=== PATIENT | female | born 1960 | race Caucasian/White ===

== ENCOUNTER 2020-06-16 10:56 | Emergency (ER) | payer OTHER ==
--- OUTSIDE RECORDS SUMMARY | 2020-06-16 11:02 | XMS REPORT | Continuity of Care Document ---
:1960 Author Organization [facility] t Address [address] [place] [address] Care Team Providers Name Role Phone SHARAD SASKIA Primary Care Physician Unavailable Vic Rascon MD Attending Clinician JERROD ZAPIEN Attending Clinician Unavailable Mateus Fermin MD Attending Clinician Alex Sanches APRN Attending Clinician Refugio Oliveira NP Attending Clinician Dorene CALDERA Attending Clinician Unavailable Fercho Kamara MD Attending Clinician Nick Riggins MD Attending Clinician Wade DRAKE Attending Clinician Unavailable Ismael CALDERA Attending Clinician Unavailable Ozzie Mosher MD Attending Clinician Brian TYLER Attending Clinician TARAH Admitting Clinician Unavailable Payers Payer Name Policy Type Policy Effective Date Expiration Date Sour ce Number [facility] [id number] 2019 [place] CHO[place] 00:00:00 [facility] EXCHANGECOM [facility] EXCHANGE MARKETPLACExxxxxx [id number] 2019-Pr esentExchange Problems Condition Condition Condition Status Onset Resolution Last Treating Co mments Source Name Details Category Date Date Treatment Clinician Date Bladder Bladder Disease Active 2019-04 [place] cancer cancer 2 Methodi 00:00: st 00 Allergies, Adverse Reactions, Alerts Allergy Allergy Status Severity Reaction(s) Onset Inactive Treating Comm ents Source Name Type Date Date Clinician Scopolam Propensi Active Other (See headaches [place] ine ty to Comments) 05-21 Methodi adverse 00:00: st reaction 00 s to drug Food Propensi Active Other (See 2019-04 TEA,AM.CH H anny Supplemt ty to Comments) 06-20 EESE,APPL Me thodi , adverse 00:00: E,BARLEY, st Lactose- reaction 00 BENZOIC Reduced s to ACID,EASLEY drug WHEAT,CAF FAINE,BRITTNI RRY,CORN, COW'S MILK,EGG, NABILA, GOAT'S MILK, GR.PEPPER ,LENTIL,P INTO PASTRANA,PIST ACHIO, STRAWBERR Y,TAPIOCA ,VANILLA, POTATO,CA PSAICIN,H ONEY,ANA YDEW,WHEA TMILK PROTEIN Adhesive Propensi Active Other (See 2019-04 blisterin [place] Tape-Jud ty to Comments) 2-22 g Metho di icones adverse 00:00: st reaction 00 s to drug Bacitrac Propensi Active Other (See 2019-04 blisterin [place] in ty to Comments) 2-22 g Methodi adverse 00:00: st reaction 00 s to drug Diphenhy Propensi Active Other (See 2019-04 Severe [place] dramine ty to Comments) 2-22 headache Meth thanh Hcl adverse 00:00: st reaction 00 s to drug Benzalko Propensi Active Other (See 2019-04 Burning, [place] nium ty to Comments) 2-22 itching Method i Chloride adverse 00:00: st reaction 00 s to drug Clindamy Propensi Active Other (See 2019-04 Abdominal [place] vivi ty to Comments) 2-22 pain Methodi adverse 00:00: st reaction 00 s to drug Erythrom Propensi Active Other (See 2019-04 Abdominal [place] ycin ty to Comments) 2-22 pain Methodi adverse 00:00: st reaction 00 s to drug Gentamic Propensi Active Other (See 2019-04 Bladder [place] in ty to Comments) 2-22 pain and Metho di adverse 00:00: inflammat st reaction 00 ion s to drug Ibuprofe Propensi Active Other (See 2019-04 Abdominal [place] n ty to Comments) 2-22 pain Methodi adverse 00:00: st reaction 00 s to drug Lanolin Propensi Active Hives, Rash 2019-04 [place] ty to - Methodi adverse 00:00: st reaction 00 s to drug Furosemi Propensi Active Hives 2019-04 Pain [place] de ty to 06-14 Methodi adverse 00:00: st reaction 00 s to drug Latex Propensi Active Hives, 2019-04 [place] ty to Itching 2- Methodi adverse 00:00: st reaction 00 s to drug Mercury Propensi Active Other (See 2019-04 Mercury [place] us[place] (Element ty to Comments) 2- preservat Me thodi al) adverse 00:00: betsey: st reaction 00 infammati s to on (my drug ear canal swelled shut) Mitomyci Propensi Active Other (See 2019-04 Pain, [place] ty to Comments) 2-22 tissue Methodi adverse 00:00: damage st reaction 00 s to drug Neomycin Propensi Active Other (See 2019-04 blisterin [place] ty to Comments) 2-22 g Methodi adverse 00:00: st reaction 00 s to drug Neomycin Propensi Active Other (See 2019-04 blisterin [place] -Bacitra ty to Comments) 2-22 g Metho di vivi-Poly adverse 00:00: st myxin reaction 00 s to drug Other Propensi Active Other (See 2019-04 SNRI [place] ty to Comments) 2-22 causes Methodi adverse 00:00: suidical st reaction 00 ideation, s lethargyS SRI causes nausea, confusion , night terrors Oxycodon Propensi Active Other (See 2019-04 Abdominal [place] e ty to Comments) 2-22 pain Methodi Hcl-Oxyc adverse 00:00: st odone-As reaction 00 a s to drug Polymyci Propensi Active Other (See 2019-04 blisterin [place] n ty to Comments) 2-22 g Methodi adverse 00:00: st reaction 00 s to drug Phenazop Propensi Active Other (See 2019-04 Bladder [place] yridine ty to Comments) 2-22 pain and Meth thanh adverse 00:00: inflammat st reaction 00 ion s to drug Tetracyc Propensi Active Other (See 2019-04 Abdominal [place] lines ty to Comments) 2-22 pain Methodi adverse 00:00: st reaction 00 s to drug Thimeros Propensi Active Other (See 2019-04 Inflammat [place] al ty to Comments) 2 ion (my Method i adverse 00:00: ear canal st reaction 00 swelled s to shut) drug Tramadol Propensi Active Other (See 2019-04 Hallucina [place] ty to Comments) 2- tion, Methodi adverse 00:00: abdominal st reaction 00 pain s to drug Hydrocod Propensi Active Other (See 2019-04 headache [place] one-Acet ty to Comments) 2 Metho di aminophe adverse 00:00: st n reaction 00 s to drug White Propensi Active Hives, 2019-04 Skin [place] Petrolat ty to Itching 2 cracking Metho di um adverse 00:00: st reaction 00 s to drug Social History Social Habit Start Date Stop Date Quantity Comments Source History of tobacco Current smoker [place] Caodaism use Sex Assigned At [facility] ethodist Exposure to Not sure [place] Metho dist SARS-CoV-2 (event) Cigarettes smoked 2020-05-31 2020-05-31 [place] Caodaism current (pack per 00:00:00 00:00:00 day) - Reported Cigarette 2020-05-31 2020-05-31 [place] Method ist pack-years 00:00:00 00:00:00 Tobacco use and 2020-05-31 2020-05-31 Never used [facility] ethodist exposure 00:00:00 00:00:00 Alcohol intake 2020-05-31 2020-05-31 Current drinker [place] [facility]ism 00:00:00 00:00:00 of alcohol (finding) Alcohol Comment 2020-04-19 2020-04-19 socially [facility] ethodist 00:00:00 00:00:00 History SDWY 2020-04-13 2020-04-13 2 [place] Meth odist Alcohol Frequency 00:00:00 00:00:00 History SDOH 2020-04-13 2020-04-13 1 [place] Meth odist Alcohol Std Drinks 00:00:00 00:00:00 History SDWY 2020-04-13 2020-04-13 1 [place] Meth odist Alcohol Binge 00:00:00 00:00:00 Smoking Status Start Date Stop Date Source Former smoker 2020-05-31 00:00:00 2020-05-31 00:00:00 Guicho Torresist Medications Ordered Filled Start Stop Current Ordering Indication Dosage Frequency Signature Comments Components Source Medication Medication Date Date Medication? Clinician (SIG) Name Name ondansetron Yes 4mg Q8H Take 1 [place] (Zofran) 4 2-19 tablet (4 Meth thanh MG tablet 00:00: mg total) st 00 by mouth every 8 (eight) hours as needed for nausea or vomiting. sulfamethox 2020- Yes 1{tbl} Q.5D Take 1 [place] azole-trime 2-19 02-24 tablet by Ok thodi thoprim 00:00: 23:[address] (Bactrim 00 :00 (two) DS) 800-160 times a mg per day for 5 tablet days. therapeutic Yes 1{tbl} QD Take 1 [place] multivitami 2-10 tablet by Met sushant javed 15:40: mouth st (THERAGRAN) 48 daily. tablet valACYclovi Yes 1000mg Q.5D Take 1,000 [place] r (VALTREX) 2-10 mg by Methodi 500 MG 15:40: mouth 2 st tablet 48 (two) times a day as needed. enoxaparin Yes 30mg Q24H Inject 0.3 [place] (Lovenox) 2-10 mL (30 mg Metho di 30 mg/0.3 00:00: total) st mL syringe 00 under the skin daily. docusate 2020- Yes 100mg Q.5D Take 1 [place] sodium 2-10 03-12 capsule Methodi (Colace) 00:00: 23:59 ([address] 100 MG 00 :00 total) by capsule mouth 2 (two) times a day for 30 days. amoxicillin Yes 1{capsu Q.[id number] Take 1 [place] (AMOXIL) 1-27 le} [id number] capsule by Methodi 500 MG 00:00: 3D mouth 3 st capsule 00 (three) times a day. docusate 2019-04- No 100mg Q.5D Take 1 [place] sodium 2-29 01-04 capsule Methodi (Colace) 00:00: 00:00 ([address] 100 MG 00 :00 total) by capsule mouth 2 (two) times a day for 30 days. Vital Signs Vital Name Observation Time Observation Value Comments Source Systolic blood 2020-06-02 11:27:21 130 mm[Hg] [place]helle[place] n Caodaism pressure Diastolic blood 2020-06-02 11:27:21 67 mm[Hg] [place] on Caodaism pressure Heart rate 2020-06-02 11:27:21 82 /min Guicho Barrios Body temperature 2020-06-02 11:27:21 35.61 Ilana [place] [facility] Respiratory rate 2020-06-02 11:27:21 16 /min Rochelle Barrios Oxygen saturation in 2020-06-02 11:27:21 93 /min Guicho Barrios Arterial blood by Pulse oximetry Body weight 2020-05-28 06:17:00 100.387 kg Guicho Barrios BMI 2020-05-28 06:17:00 35.19 kg/m2 Guicho Barrios Body height 2020-05-25 11:58:00 168.9 cm Guicho Barrios Procedures Procedure Date / Time Performing Clinician Source Performed ARTERIAL LINE 2020-06-13 10:07:44 Gabriela Hansen ethodist XR ABDOMEN 1 VW 2020-06-11 09:06:00 SatVic lopez Ok thodist COMPREHENSIVE METABOLIC 2020-06-11 08:15:00 Vic Rascon Caodaism PANEL HC COMPLETE BLD COUNT 2020-06-11 08:15:00 Vic Rascon W/AUTO DIFF ESTIMATED GFR 2020-06-11 08:15:00 Vic Rascon Ok thodist BASIC METABOLIC PANEL 2020-06-02 04:05:00 Kyra Hummel HC COMPLETE BLD COUNT 2020-06-02 04:05:00 Kyra Hummel W/AUTO DIFF PHOSPHORUS LEVEL 2020-06-02 04:05:00 Kyra Hummel hodist MAGNESIUM LEVEL 2020-06-02 04:05:00 Kyra Hummel Meth odist ESTIMATED GFR 2020-06-02 04:05:00 Vic Rascon Ok thodist CONSULT TO OSTOMY CARE 2020-06-01 07:54:11 Satkunasivam, Vic lunsford Caodaism NURSE HC COMPLETE BLD COUNT 2020-06-01 06:30:00 Brinda Amin Caodaism W/AUTO DIFF Michelle BASIC METABOLIC PANEL 2020-06-01 06:30:00 Brinda Amin Michelle MAGNESIUM LEVEL 2020-06-01 06:30:00 Brinda Amin Caodaism Michelle PHOSPHORUS LEVEL 2020-06-01 06:30:00 Brinda Amin on Caodaism Michelle ESTIMATED GFR 2020-06-01 06:30:00 Tarah, Vic Lindo Ok thodist XR ABDOMEN 2 VW AP W 2020-05-31 12:39:36 Kyra Hummel Ca[facility]ism UPRIGHT AND/OR DECUBITUS XR PICC CHEST PORTABLE 2020-05-31 11:03:04 Vic Rascon Caodaism PICC INSERTION REQUEST 2020-05-31 10:19:59 Trevon Rutledge on Caodaism HC COMPLETE BLD COUNT 2020-05-31 04:45:00 CelBreezy richards Caodaism W/AUTO DIFF COMPREHENSIVE METABOLIC 2020-05-31 04:00:00 CelBreezy richards Caodaism PANEL MAGNESIUM LEVEL 2020-05-31 04:00:00 Breezy Perez Meth odist PHOSPHORUS LEVEL 2020-05-31 04:00:00 Breezy Perez Met janett ESTIMATED GFR 2020-05-31 04:00:00 Vic Rascon Ok thodist HC COMPLETE BLD COUNT 2020-05-30 04:05:00 CelBreezy richards Caodaism W/AUTO DIFF COMPREHENSIVE METABOLIC 2020-05-30 04:00:00 Breezy Perez Caodaism PANEL MAGNESIUM LEVEL 2020-05-30 04:00:00 Breezy Perez Meth odist PHOSPHORUS LEVEL 2020-05-30 04:00:00 Breezy Perez ESTIMATED GFR 2020-05-30 04:00:00 Satkeros, Vic Lindo Ok thodist XR CHEST 1 VW PORTABLE 2020-05-29 09:17:32 Ayleen Martin on Caodaism COMPREHENSIVE METABOLIC 2020-05-29 04:00:00 CelBreezy richards Caodaism PANEL MAGNESIUM LEVEL 2020-05-29 04:00:00 Breezy Perez Meth odist PHOSPHORUS LEVEL 2020-05-29 04:00:00 Breezy Perez Met hodist ESTIMATED GFR 2020-05-29 04:00:00 Deshaunkeros, Vic Lindo Ok thodist HC COMPLETE BLD COUNT 2020-05-29 03:20:00 CelBreezy richards Caodaism W/AUTO DIFF POC GLUCOSE 2020-05-28 21:07:00 Vic Rascon Ok thodist XR ABDOMEN 1 VW PORTABLE 2020-05-28 18:37:41 CelBreezy richards Caodaism XR CHEST 1 VW PORTABLE 2020-05-28 18:37:20 CelBreezy richards on Caodaism COMPREHENSIVE METABOLIC 2020-05-28 16:35:00 CelBreezy richards Caodaism PANEL HC COMPLETE BLD COUNT 2020-05-28 16:35:00 Breezy Perez W/AUTO DIFF PHOSPHORUS LEVEL 2020-05-28 16:35:00 Breezy Perez Met hodist MAGNESIUM LEVEL 2020-05-28 16:35:00 Breezy Perez odist ESTIMATED GFR 2020-05-28 16:35:00 Vic Rascon Ok thodist CONSULT TO OSTOMY CARE 2020-05-28 16:10:54 Breezy Perez on Caodaism NURSE ARTERIAL BLOOD GAS, 2020-05-28 15:19:00 Vic Rascon CORRECTED SODIUM LEVEL, SYRINGE 2020-05-28 15:19:00 Vic Rascon Caodaism POTASSIUM, SYRINGE 2020-05-28 15:19:00 Vic Rascon [facility]ism HEMOGLOBIN, SYRINGE 2020-05-28 15:19:00 Satkunasivam, Vic javed Caodaism IONIZED CALCIUM, ARTERIAL 2020-05-28 15:19:00 Satkunasivam, Vic Lindo Caodaism LACTIC ACID, SYRINGE 2020-05-28 15:19:00 SatkunasivamVic Caodaism GLUCOSE LEVEL, SYRINGE 2020-05-28 15:19:00 Satkunasivam, Vic lunsford Caodaism ARTERIAL BLOOD GAS, 2020-05-28 14:01:00 Satkunasivam, Vic javed Caodaism CORRECTED SODIUM LEVEL, SYRINGE 2020-05-28 14:01:00 Satkunasivam, Vic vivas Caodaism POTASSIUM, SYRINGE 2020-05-28 14:01:00 Satkunasivam, Vic Lindo Caodaism HEMOGLOBIN, SYRINGE 2020-05-28 14:01:00 Satkunasivam, Vic javed Ca[facility]ism IONIZED CALCIUM, ARTERIAL 2020-05-28 14:01:00 Satkunasivam, Vic Lindo Caodaism GLUCOSE LEVEL, SYRINGE 2020-05-28 14:01:00 Satkunasivam, Vic lunsford Caodaism LACTIC ACID, SYRINGE 2020-05-28 14:01:00 SatkunaVic mg on Caodaism ARTERIAL BLOOD GAS, 2020-05-28 11:58:00 Satkunasivam, Vic javed Caodaism CORRECTED SODIUM LEVEL, SYRINGE 2020-05-28 11:58:00 SatkunasitiagomVic Caodaism POTASSIUM, SYRINGE 2020-05-28 11:58:00 Satkunasivam, Vic Lindo Caodaism HEMOGLOBIN, SYRINGE 2020-05-28 11:58:00 Satkunasivam, Vic javed Ca[facility]ism GLUCOSE LEVEL, SYRINGE 2020-05-28 11:58:00 Satkunasivam, Vic lunsford Ca[facility]ism IONIZED CALCIUM, ARTERIAL 2020-05-28 11:58:00 Satkunasivam, Vic Torresist LACTIC ACID, SYRINGE 2020-05-28 11:58:00 SatkVic cooney on Caodaism SURGICAL PATHOLOGY REQUEST 2020-05-28 10:27:00 SatkVic cooney ND AN ELECTIVE 2020-05-28 08:24:32 Gabriela Hansen Guicho M ethodist ENDOTRACHEAL AIRWAY ARTERIAL BLOOD GAS, 2020-05-28 07:48:00 DeshaunkVic cooney CORRECTED POTASSIUM, SYRINGE 2020-05-28 07:48:00 Satkunasivam, Vic Barrios SODIUM LEVEL, SYRINGE 2020-05-28 07:48:00 DeshaunkunaVic mg IONIZED CALCIUM, ARTERIAL 2020-05-28 07:48:00 SatkriazmVic GLUCOSE LEVEL, SYRINGE 2020-05-28 07:48:00 SatkunaVic mg HEMOGLOBIN, SYRINGE 2020-05-28 07:48:00 SatkunasivamVic LACTIC ACID, SYRINGE 2020-05-28 07:48:00 DeshaunkVic cooney NEPHROURETERECTOMY, 2020-05-28 07:29:00 DeshaunkunaVic mg LAPAROSCOPIC, ROBOT-ASSISTED CYSTECTOMY, LAPAROSCOPIC, 2020-05-28 07:29:00 Vic Rascon ROBOT-ASSISTED ABO AND RH CONFIRMATION 2020-05-28 06:30:00 DeshaunkVic cooney HC COMPLETE BLD COUNT 2020-05-28 06:30:00 Breezy Perez W/AUTO DIFF COMPREHENSIVE METABOLIC 2020-05-28 06:30:00 Breezy Perez PANEL PARTIAL THROMBOPLASTIN 2020-05-28 06:30:00 Breezy Perez TIME (PTT) PROTHROMBIN TIME WITH INR 2020-05-28 06:30:00 Breezy Perez MAGNESIUM LEVEL 2020-05-28 06:30:00 Breezy Perez Meth odist PHOSPHORUS LEVEL 2020-05-28 06:30:00 Breezy Perez hodcatia ESTIMATED GFR 2020-05-28 06:30:00 DeshaunkVic cooney Me thodist COVID-19 QUALITATIVE PCR 2020-05-25 11:48:00 Vic Rascon HIV AG/AB COMBINATION 2020-05-25 11:47:00 DeshaunkVic cooney PROTHROMBIN TIME WITH INR 2020-05-25 11:47:00 DeshaunkVic cooney PARTIAL THROMBOPLASTIN 2020-05-25 11:47:00 DeshaunkVic cooney Caodaism TIME (PTT) URINALYSIS SCREEN AND 2020-05-25 11:47:00 DeshaunkVic cooney MICROSCOPY, WITH REFLEX TO CULTURE TYPE AND SCREEN 2020-05-25 11:47:00 Vic Rascon Ok thodist HEPATITIS C ANTIBODY 2020-05-25 11:47:00 Vic Rascon on Caodaism HC COMPLETE BLD COUNT 2020-05-25 11:47:00 Vic Rascon W/AUTO DIFF COMPREHENSIVE METABOLIC 2020-05-25 11:47:00 Vic Rasconton Caodaism PANEL ESTIMATED GFR 2020-05-25 11:47:00 Vic Rascon Ok thodist URINE CULTURE 2020-05-25 11:30:00 Vic Rascon Ok christianoodist XR CHEST 1 VW 2020-05-05 13:22:53 Geovanna Riggins SURGICAL PATHOLOGY REQUEST 2020-05-05 11:58:00 Rufina Kamara XR CHEST 1 VW 2020-05-05 11:08:[address] NEEDLE BIOPSY NO 2020-05-05 10:45:00 Rufina Kamara [employer] CULTURE 2020-05-05 10:11:00 Rufina Kamara Meth odist AEROBIC CULTURE 2020-05-05 10:11:00 Rufina Kamara Meth odist FUNGUS CULTURE 2020-05-05 10:11:00 Rufina Kamara Meth odist ANAEROBIC CULTURE 2020-05-05 10:11:00 Rufina Kamara Me thodist GRAM STAIN 2020-05-05 10:11:00 Rufina Kamara Meth odist AFB STAIN 2020-05-05 10:11:00 Rufina Kamara Meth odist CYTOLOGY 2020-05-05 09:50:00 Rufina Kamara odist (NON-GYNECOLOGICAL) REQUEST COVID-19 QUALITATIVE PCR 2020-05-03 16:53:00 Rufina Kamara Fercho Barrios BASIC METABOLIC PANEL 2020-05-03 16:52:00 Rufina Kamara Fercho Barrios ESTIMATED GFR 2020-05-03 16:52:00 Rufina Kamara Ion rodriguez PARTIAL THROMBOPLASTIN 2020-05-03 15:01:00 Rufina Kamara on Caodaism TIME (PTT) PROTHROMBIN TIME WITH INR 2020-05-03 15:01:00 Rufina Kamara Fercho Barrios CBC WITH PLATELET AND 2020-05-03 15:01:00 Rufina Kamara Fercho Barrios DIFFERENTIAL MANUAL DIFFERENTIAL 2020-05-03 15:01:00 Rufina Kamara Guicho Barrios ND AN ELECTIVE 2020-04-19 16:57:49 Flavio Harrington ENDOTRACHEAL AIRWAY Juan CYSTOSCOPY, WITH TURBT 2020-04-19 16:41:[address] SKULL BASE TO MID 2020-04-15 14:12:47 Vic Rascon THIGH POC GLUCOSE 2020-04-15 12:59:00 Vic Rascon Ok thodi XR CHEST 2 VW 2020-04-14 14:48:14 Vic Rascon Ok thodist URINE CULTURE 2020-04-14 14:12:00 Vic Rascon Ok thodist ECG PRE/POST OP 2020-04-14 14:06:10 Vic Rascon Ok christianoodist COVID-19 QUALITATIVE PCR 2020-04-14 13:57:00 Vic Rascon URINALYSIS SCREEN AND 2020-04-14 13:49:00 Vic Rascon MICROSCOPY, WITH REFLEX TO CULTURE HEMOGLOBIN A1C 2020-04-14 13:48:00 Rose Sanches Guicho M ethodist PARTIAL THROMBOPLASTIN 2020-04-14 13:48:00 Vic Rascon TIME (PTT) PROTHROMBIN TIME WITH INR 2020-04-14 13:48:00 Vic Rascon CBC HEMOGRAM 2020-04-14 13:48:00 Vic Rascon Ok thodist COMPREHENSIVE METABOLIC 2020-04-14 13:48:00 Vic Rascon PANEL ESTIMATED GFR 2020-04-14 13:48:00 Vic Rascon Ok christianoodist PET CT WHOLE BODY EXTERNAL 2020-03-15 16:01:00 Vic Rascon STUDY NM EXTERNAL STUDY 2020-02-27 10:23:00 Vic Rascon Plan of Care Planned Activity Planned Date Details Comments Source Future Scheduled 2023-05-05 Screening for [facility] thodist Test 00:00:00 malignant neoplasm of cervix (procedure) [code = 626794566] Future Scheduled 2012 BREAST CANCER [facility] thodist Test 00:00:00 SCREENING [code = BREAST CANCER SCREENING] Future Scheduled 2012 COLONOSCOPY SCREENING [place] Caodaism Test 00:00:00 [code = COLONOSCOPY SCREENING] Future Scheduled 2012 SHINGLES VACCINES [place] [facility] Test 00:00:00 (#1) [code = SHINGLES VACCINES (#1)] Future Scheduled 1978 COVID-19 VACCINE (1 [place] [facility]oda[facility] Test 00:00:00 of 2) [code = COVID-19 VACCINE (1 of 2)] Encounters Start End Encounter Admission Attending Care Care Encounter Source Date/Time Date/Time Type Type Clinicians Facility Department ID 2020-06-11 2020-06-11 Outpatient MARCOHOWARDJUAN JOSEVA [facility] [id number] [place] 00:00:00 00:00:00 VIC Mitchell [address] 2020-06-11 2020-06-11 [id number] [place] 00:00:00 00:00:00 VIC Mitchell [address] 2020-06-11 2020-06-11 Outpatient SATKUNASIVA [facility] [id number] [place] 00:00:00 00:00:00 M, VIC 489 Method i 2020-06-11 2020-06-11 Outpatient CURRY, [facility] [id number] [place] 00:00:00 00:00:00 JERROD [address] 2020-06-10 2020-06-10 Outpatient SATKUNASIVA [facility] [id number] [place] 00:00:00 00:00:00 M, VIC [address] 2020-05-28 2020-06-02 Inpatient SATKUNASIVA [facility] [id number] [place] 00:00:00 00:00:00 M, VIC 319 Method i 2020-05-25 2020-05-25 Outpatient SATKUNASIVA [facility] [id number] [place] 00:00:00 00:00:00 M, VIC 437 Method i 2020-05-20 2020-05-20 Outpatient SATKUNASIVA [facility] [id number] [place] 00:00:00 00:00:00 M, VIC 755 Method i 2020-05-05 2020-05-05 Outpatient SATKUNASIVA [facility] [id number] [place] 00:00:00 00:00:00 M, VIC [address] 2020-05-05 2020-05-05 Outpatient RUFINA KAMARA [facility] [id number] [place] 00:00:00 00:00:[address] 2020-05-05 2020-05-05 Outpatient ABDCATHERINEHIAN [facility] [id number] [place] 00:00:00 00:00:00 , GEOVANNA 958 Metho di 2020-05-05 2020-05-05 Outpatient ABDOLLAHIAN [facility] [id number] [place] 00:00:00 00:00:00 , GEOVANNA [address] 2020-05-03 2020-05-03 Outpatient RUFINA KAMARA [facility] [id number] [place] 00:00:00 00:00:[address] 2020-04-27 2020-04-27 Outpatient RUFINA KAMARA [facility] [id number] [place] 00:00:00 00:00:[address] 2020-04-19 2020-04-20 [facility] [id number] [place] 00:00:00 00:00:00 M, VIC [address] 2020-04-15 2020-04-15 Outpatient SATKUNASIVA [facility] [id number] [place] 00:00:00 00:00:00 M, VIC [address] 2020-04-14 2020-04-14 [facility] [id number] [place] 00:00:00 00:00:00 M, VIC [address] 2020-04-14 2020-04-14 Outpatient SATKUNAVA [facility] [id number] [place] 00:00:00 00:00:00 M, VIC [address] 2020-04-14 2020-04-14 [facility] [id number] [place] 00:00:00 00:00:00 M, VIC [address] 2020-04-14 2020-04-14 Outpatient [facility] [id number] [place] 00:00:00 00:00:00 M, VIC [address] 2020-04-14 2020-04-14 [facility] [id number] [place] 00:00:00 00:00:00 M, VIC [address] 2020-04-02 2020-04-02 [facility] [id number] [place] 00:00:00 00:00:00 M, VIC [address] Results Test Description Test Time Test Comments Results Result [facility] e Comments Arterial line 2020-05-25 Mateus Fermin [place] 1 MD 06/16/2020 Methodis t 10:07:44 7:35 AMArterial line Patient Location: ORStart Time: 05/28/2020 7:45 AMEnd Time: 05/28/2020 7:48 AM Performed by: anesthesiologistAnest hesiologist: Mateus Fermin MDAuthorized by: Mateus Fermin MD Pre-procedure: patient identified, IV checked, site and side verified, risks and benefits discussed, procedure verified, surgical consent complete, patient position confirmed, monitors and equipment checked, pre-op evaluation complete and timeout performed prior to procedure MSBT: antiseptic used, all elements of maximal sterile barrier technique followed, hand hygiene performed, cap/gown used by other personnel and solutions labeled Indications: Indications: hemodynamic monitoring Anesthesia: Anesthesia: GeneralProcedure Details: Arterial Line placement: Placed post induction Line placement site: RadialLine placement side: Right Arterial line gauge: 20 GNumber of attempts: 1Ultrasound guidance used: No Post-procedure: Post-procedure: Sterile dressing applied Post procedure circulation, sensation, movement: Unable to assess Patient tolerance: Patient tolerated the procedure well with no immediate complicationsNotes: Neg hematoma to radial site Procedure performed by Mateus Fermin MD XR Abdomen 1 Vw 2020-05-24 Severo Padgett [address] 12:37:11 Incoming - 06/11/2020 12:40 PM CSTEXAMINATION: XR ABDOMEN 1 VWCLINICAL HISTORY: C68.9 Malignant neoplasm of urinary organ unspecified, Urothelial CarcinomaCOMPARISON: 05/31/2020IMPRESSION:1. Right lower quadrant ostomy. Right ureteral stent with loop terminating in the region of the ostomy consistent with a urinary diversion.2.Bowel gas pattern nonobstructive. Air in the flank regions consistent with recent surgery. Cholecystectomy clips. Comprehensive metabolic panel 2020-06-11 09:40:27 Test Item Value Reference Range Interpretation Comme nts Sodium (test code = 2951-2) 138 See_Comment [Automated message] The system which generated this result transmitted ref erence range: 135 - 148 mEq/L . The reference range was not u sed to interpret this result as normal/abnormal. Potassium (test code = 4.1 See_Comment [Aut omated message] The system 1653-3) which generated this result transmitted ref erence range: 3.5 - 5.0 mEq/L . The reference range was not u sed to interpret this result as normal/abnormal. Chloride (test code = 2075-0) 112 See_Comment [Automated message] The system which generated this result transmitted ref erence range: 98 - 112 mEq/L. Th e reference range was not u sed to interpret this result as normal/abnormal. CO2 (test code = 2027-) 18 See_Comment L [A utomated message] The system which generated this result transmitted ref erence range: 24 - 31 mEq/L. The reference range was not used to interpret this result as ashanti l/abnormal. Anion gap (test code = 8@TYRA See_Comment [Aut omated message] The system 87085-0) which generated this result transmitted ref erence range: 7 - 15 mEq/L. The reference range was not used to interpret this result as ashanti l/abnormal. BUN (test code = 3094-0) 14 mg/dL 6-20 Creatinine (test code = 1.50 mg/dL 0.5-0.9 H 2160-0) Glucose (test code = 2345-7) 96 mg/dL 65-99 Calcium (test code = 78835-1) 9.6 mg/dL 8.3-10.2 Protein (test code = 2885-2) 6.9 g/dL 6.3-8.3 -[place] 4.6-7.0 g/dL1 w cachil dehe 4.4-7.6 g/ dL7 months-1year 5.1-7 .3 g/dL1-2 years 5.6-7.5 g/dL>3 years 6.0-8.0 g/fT41-505 6.3-8.3 g/dL Albumin (test code = 1751-7) 3.2 g/dL 3.5-5 L A/G ratio (test code = 0.9 0.7-3.8 1759-0) Alkaline phosphatase (test 107 U/L 35-104 H code = 6768-6) AST (test code = 1920-8) 38 U/L 10-35 H ALT (test code = 1742-6) 57 U/L 5-50 H Total bilirubin (test code = 0.5 mg/dL 0-1.2 1974-) Lab Interpretation (test code Abnormal = 59834-2) [place] MethodistEstimated NAN8921-20-03 09:40:26 Test Item Value Reference Range Interpretation Comments Estimated GFR (test 38 mL/min/1.73 m2 Becca sawyer Units code = 5488) InterpretationG 1 >=90 Ashanti l or highG2 60-89 Mildly decrease dG3a 45-59 Mil dly to moderately decr yxcxjM5p 30-44 Moderately to s everely decreasedG4 15-29 Severe ly decreasedG5 <15 Kidney tevin lureThe eGFR was calcul ated using the [facility] Kidney Disease Epidemiology Collaboration ( CKD-EPI) equation. Interpretation is based on recommendati ons of the National [facility]-Kidn ey Disease Outcome s Quality Initiat kash (NKF-KDOQI) pub lished in 2013. Lab Interpretation Abnormal (test code = 51056-9) [facility] with platelet and hcmacwdjmlue1048-66-51 09:04:48 Test Item Value Reference Range Interpretation Comments WBC (test code = 8.91 See_Comment [Automated message] 18043-7) The system [employer] generated this result transmit ger reference range : 4.50 - 11.00 k/ uL. The reference r karey was not used to interpret this result as normal/abnormal . RBC (test code = 4.39 m/uL 4.2-5.5 25473-3) HGB (test code = 718-7) 12.8 g/dL 12-16 HCT (test code = 4544-3) 40.7 % 37-47 MCV (test code = 787-2) 92.7 fL 82-100 MCH (test code = 785-6) 29.2 pg 27-34 MCHC (test code = 786-4) 31.4 g/dL 31-37 RDW - SD (test code = 50.5 fL 37-55 84411-3) MPV (test code = 10.3 fL 8.8-13.2 29920-2) Platelet count (test 351 See_Comment [Autom ated message] code = 98510-2) The system The [employer] [facility] generated this result transmit ger reference range : 150 - 400 k/uL. The reference range was not used to interpret this result as normal/abnormal . Nucleated RBC (test code 0.00 See_Comment [A utomated message] = 22114-5) The system [employer] generated this result transmit ger reference range : /100 WBC. The reference range was not used to interpret this result as normal/abnormal . Neutrophils (test code = 65.4 % 39-69 69206-7) Lymphocytes (test code = 22.6 % 25-45 L 48281-2) Monocytes (test code = 4.8 % 0-10 83508-6) Eosinophils (test code = 5.5 % 0-5 H 68952-6) Basophils (test code = 0.8 % 0-1 96383-4) Immature granulocytes 0.9 % 0-1 "Immat ure (test code = 74125-8) granul ocytes" (promyelocytes, myelocytes, metamyelocytes) Lab Interpretation (test Abnormal code = 48921-2) [place] MethodistFungus gzzhkmo9299-17-68 07:50:13 Test Item Value Reference Interpretation Comments Range Fungus culture Coccidioides A Specimen isolate (test code immitis Informati onSpecimen = 1441) Source: [facility] Site: Lung nodu le left lower lobe Lab Interpretation Abnormal (test code = 59756-4) [place] MethodistBasic metabolic qajth1815-46-15 05:50:06 Test Item Value Reference Range Interpretation Comments Sodium (test code = 141 See_Comment [Automa ger message] 2181-2) The system [employer] generated this result transmit ger reference range : 135 - 148 mEq/L. Th e reference range was not used to interpret this result as normal/abnormal . Potassium (test code = 3.5 See_Comment [Aut omated message] 8703-3) The system [employer] generated this result transmit ger reference range : 3.5 - 5.0 mEq/L. Th e reference range was not used to interpret this result as normal/abnormal . Chloride (test code = 116 See_Comment H [Auto mated message] 2074-0) The system [employer] generated this result transmit ger reference range : 98 - 112 mEq/L. Th e reference range was not used to interpret this result as normal/abnormal . CO2 (test code = 18 See_Comment L [Automated message] 2027-12) The system [employer] generated this result transmit ger reference range : 24 - 31 mEq/L. The reference range was not used to interpret this result as normal/abnormal . Anion gap (test code = 7@ANIO See_Comment [Aut omated message] 44869-8) The system [employer] generated this result transmit ger reference range : 7 - 15 mEq/L. The reference range was not used to interpret this result as normal/abnormal . BUN (test code = 25 mg/dL 6-20 H 3094-0) Creatinine (test code = 1.37 mg/dL 0.5-0.9 H 2160-0) Glucose (test code = 88 mg/dL 65-99 2345-7) Calcium (test code = 8.1 mg/dL 8.3-10.2 L 01291-1) Lab Interpretation Abnormal (test code = 12788-9) [place] TorresistMagnesium xrrsu5202-02-52 05:50:06 Test Item Value Reference Range Interpretation Comments Magnesium (test code = 56678-6) 1.7 mg/dL 1.6-2.6 [place] MelissaistPhosphorus tdhpf5202-78-72 05:50:05 Test Item Value Reference Range Interpretation Comments Phosphorus (test code = 2777-1) 2.2 mg/dL 2.4-4.5 L Lab Interpretation (test code = Abnormal 44859-5) [facility] kliukmk5199-13-86 18:03:47 Test Item Value Reference Range Interpretation Comments Case number (test code = [id number]) Surgical pathology See link below for report (test code = PDF Lab Report 2255) Result status (test code This is Final Report = [id number]) for [id number] [place] MethodistXR Abdomen 2 Vw Ap W Upright And/Or Bjqlgkgef2324-94-98 12:55:51Hm Interface, Radiology Results - 05/31/2020 12:58 PM CSTXR ABDOMEN 2 VW AP W UPRIGHT AND OR DECUBITUSCLINICAL INDICATION: Nausea vomiting, r o SBOCOMPARISON: May 31, 2020IMPRESSION:Gaseous distention of small bowel loops in the midabdomen is concerning for small bowel obstruction. Small amount of air is present within the ascending and proximal transverse colon.Extensive subcutaneous emphysema involving the soft tissues of the mid to lower abdomen in addition to retroperitoneal air.Right ureteral stent. Right abdominal catheter or drain.Cholecystectomy.Left lower lobe opacity likelyrelates to volume loss with small left pleural effusion..[id number] MethodistXR Picc Chest Lhehbvtc8096-60-82 11:13:49Hm Interface, Radiology Results Incoming - 05/31/2020 11:16 AM CSTEXAMINATION: XR PICC CHEST PORTABLECLINICAL HISTORY: C67.9 Malignant neoplasm of bladder unspecified, multiple iv medsCOMPARISON: Chest x-ray 2/6/2021IMPRESSION: Single frontal view reveals interval placement of a right-sided PICC line with tip overlying the SVC. Left basilar opacification persists. The remainder of the examinationis unchanged.[id number] MethodistPICC ckentqzkb3254-06-12 10:19:59Desmond Encinas RN 05/31/2020 10:22 AMPICC insertion Date/Time: 05/31/2020 10:20 AMPerformed by: Trevon Rutledge, RNAuthorized by: Vic Rascon MD Consent: Consent obtained: Verbal and written Consent given by: Patient Risks discussed: Arterial puncture, incorrect placement, nerve damage, bleeding, infection, deep vein thrombus and superficial thrombus Alternatives discussed: DelayedtreatmentUniversal protocol: Procedure explained and questions answered to patient or proxy's satisfaction: yes Relevant documents present and verified: yes Test results available and properly labeled: yes Imaging studies available: yes Required blood products, implants, devices, and special equipment available: yes Site/side marked: yes Immediately prior to procedure, a time out was called: yes Patient identity confirmed: Arm band, provided demographic data, verbally with patient and hospital-assigned identification numberPre-procedure details: Hand hygiene: Hand hygiene performed prior to insertion Sterile barrier technique: All elements of maximal sterile technique followed Skin preparation: ChloraPrep Skin preparation agent: Completely dried prior to procedure Anesthesia (see MAR for exact dosages): Anesthesia method: Local infiltration Local anesthetic: Lidocaine 1% w/o epi Route administered: SubcutaneousPICC Line Placement Details: Patient position: Flat Vessel Size (mm): 5 Indication: Known custodial IV therapy Location: Right basilic Device Type: Non-valved Catheter Lumens: Double lumen Catheter size: 4 FrPICC Characteristics: Catheter Brand: Provena External Catheter Length (cm): 0 Internal Catheter Length (cm): 42 Total Catheter Length (cm): 42 Catheter Lot Number: [id number] Catheter Expiration Date: 2Procedure details: Landmarks identified: yes Ultrasound guidance: yes Sterile ultrasound techniques: Sterile gel and sterile probe covers were used Number of attempts: 1 Number of PICC kits used during procedure: 1 Extra guide wire required?: No Purpose of procedure: PICC Placement Successful PICC Placement: yes Patency/Placement: Flushes without difficulty, positive blood return, flushed with 10 mL normal saline, x-ray placement verified and ultrasound placement verified Dressing/Securement: Antimicrobial dressing dry and intact, catheter securement device and antimicrobial dressing applied Blood Loss Amount: Less than 20 mLPost-procedure details: Post-procedure: Dressing applied Tip placement confirmed by: X-Ray Tip position adjusted per chest x- ray: no Tip position adjusted check box Patient tolerance of procedure: Tolerated well, no immediate complicationsBaptist Saint Anthony'S HospitalXR Chest 1 Ambnfbxv6275-68-16 09:39:21Hm Interface, Radiology Results Incoming - 05/29/2020 9:42 AM CSTEXAMINATION: XR CHEST 1 PORTABLECLINICAL HISTORY: SOBCOMPARISON: Single view chest from 05/28/2020IMPRESSION:An AP radiograph of the chest was submitted for interpretation.Interval improvement of pulmonary edema. Pulmonary vascular congestion is noted. Left-sided pleural effusion has also improved. Bibasilar atelectasis.No pneumothorax or new focal consolidation.The mediastinal contours and cardiac silhouette are unchanged. Calcified atherosclerotic disease.The bones are unremarkable. HMRM-WPHYAAW [facility] gzyxhkj5044-92-42 21:08:50 Test Item Value Reference Range Interpretation Comments POC glucose (test code 115 mg/dL 65-99 H Opera tor Name: [place] = 87251-3) AmandaDevice ID : [id number] able: [facility] Notified slot machine department floorperson Interpretation Abnormal (test code = 13953-9) [facility] Abdomen 1 Fpnwvacq2017-13-63 18:50:51Hm Interface, Radiology Results Incoming - 05/28/2020 6:54 PM CSTEXAMINATION: XR ABDOMEN 1 PORTABLECLINICAL HISTORY: 60 years 1962 s p cystectomy stents COMPARISON: None.IMPRESSION:1.Thereis prominent subcutaneous emphysema bilaterally, postoperative. There is a right internal ureteral stent which terminates over the pelvis in the midline. There is a right pelvic drain.2.There is a curvilinear density projecting over the inferior pelvis. This likely correlates with patient's vaginal packing material.3.There is a vague round density over the left hemiabdomen. This may be external to the patient. Clinical correlation4.The bowel gas pattern is nonobstructive. 5.The bones are intact.Findings were discussed with Dr. VIC RASCON at 05/28/2020 6:50 PM who verbalized understanding.[id number] MethodistArterial blood gas, oxuvvjtnf7258-11-54 15:32:26 Test Item Value Reference Range Interpretation Comments pH, arterial (test code 7.27 7.35-7.45 L = 2744-1) pCO2, arterial (test 45 See_Comment [Autom ated message] code = 2019-8) The system ich generated this result transmitted ref erence range: 35 - 45 mmHg. The reference r karey was not used to interpret this result as normal/abnor mal. pO2, arterial (test code 111 See_Comment H [A utomated message] = 2703-7) The system [place] [employer] generated this result transmitted ref erence range: 80 - 90 mmHg. The reference r karey was not used to interpret this result as normal/abnor mal. Temperature, Celsius 35.0 Degrees C (test code = 8310-5) O2 saturation, arterial 98 % 95-100 (test code = 2708-6) pH, arterial corrected 7.30 (test code = 60879-8) pCO2, arterial corrected 41 mmHg (test code = 85033-4) pO2, arterial corrected 100 mmHg (test code = 42925-3) Base excess, arterial -6 See_Comment L [Auto mated message] (test code = 1925-7) The [facility] tem which generated this result transmitted ref erence range: -2 - 2 m Eq/L. The reference r karey was not used to interpret this result as normal/abnor mal. Lab Interpretation (test Abnormal code = 94738-0) [place] MethodistGlucose level, qhrgobp8953-09-44 15:32:26 Test Item Value Reference Range Interpretation Comments Glucose, syringe (test code = 168 mg/dL 65-99 H 2345-7) Lab Interpretation (test code = Abnormal 19606-9) [place] MethodistHemoglobin, wvimkgf4900-65-28 15:32:26 Test Item Value Reference Range Interpretation Comments Hemoglobin, syringe (test code = 10.6 g/dL 12-16 L 718-7) Lab Interpretation (test code = Abnormal 91170-8) [place] MethodistIonized calcium, vcunblgm0154-87-35 15:32:26 Test Item Value Reference Range Interpretation Comments Ionized calcium, arterial (test 1.07 mmol/L 1.11-1.32 L code = 37796-6) Lab Interpretation (test code = Abnormal 69926-1) [place] MethodistLactic acid, npjwica7326-31-86 15:32:26 Test Item Value Reference Range Interpretation Comments Lactic acid, syringe (test code = 1.3 mmol/L 0.5-2.2 54809-8) [place] MethodistPotassium, qypgiux2530-41-16 15:32:26 Test Item Value Reference Range Interpretation Comments Potassium, syringe 4.7 See_Comment [Automat ed message] The (test code = 2008) system wh ich generated this result tra nsmitted reference range : 3.5 - 5.0 mEq/L. The refe rence range was not used to interpret this result as normal/abnormal . [place] MethodistSodium level, enhgrgu9507-78-58 15:32:26 Test Item Value Reference Range Interpretation Comments Sodium, syringe (test 143 See_Comment [Auto mated message] The code = 2947-0) system which generated this result tra nsmitted reference range : 135 - 148 mEq/L. The refe rence range was not used to interpret this result as normal/abnormal . [place] TorresNwhebscvhLdeupw9336-04-12 08:24:32Gabriela Hansen 05/28/2020 8:25 AMAirway Date/Time: 05/28/2020 7:44 AM Location: OR Performed by: RAZIA/Micah/RAZIA/AA: Gabriela HansenAuthorized by: Mtaeus Fermin MD Urgency: ElectiveDifficult Airway: No Preoxygenated with 100% O2: Yes Mask Ventilation: Easy maskFinal AirwayType: Endotracheal airwayFinal Endotracheal Airway: ETTCuffed: Yes Technique Used: Direct laryngo scopyInsertion Site: OralBlade Type: MillerLaryngoscope Blade/Videolaryngoscope Blade Size: 2ETT Size (mm): 7.0Cuff at minimum occlusion pressure: Yes Measured from: TeethETT to Teeth (cm): 21Placement Verified by: CO2 detection, direct visualization and equal breath sounds Laryngoscopic view: Grade I - full view of glottisRapid Sequence Induction (RSI): No Modified RSI: No Number of Attempts at Approach: 1 Atraumatic Intubation, dentition unchangedHouston MethodistABO and Rh confirmation 2020-05-28 07:47:00 Test Item Value Reference Range Interpretation Comments ABO grouping (test code = 883-9) A Rh type (test code = 41141-5) POS [place] MethodistPartial thromboplastin time, bzonatwmi9966-77-62 07:20:24 Test Item Value Reference Range Interpretation Comments PTT (test code = 31.4 See_[place] [address]-9) unfractionated heparin is61.0-112.0 se conds which corresponds to Anti-Xa0.3-0.7 U/ml. [Automat ed message] The system whic h generated this result tra nsmitted reference range : 23.0 - 36.0 sec. The refere nce range was not used to int erpret this result as ashanti l/abnormal. [place] MethodistProthrombin time with EJX8805-43-52 07:20:12 Test Item Value Reference Range Interpretation Comments Prothrombin time (test 12.6 See_Comment [Aut omated message] The code = 5902-2) system which generated this result tra nsmitted reference range : 11.5 - 14.5 sec. The r eference range was not u sed to interpret this result as normal/abnormal . INR (test code = 1.0 The Interna tional 63840-2) Normalized Rati o (INR) is a therapeutic m onitoring tool for patien ts who are stable on oral anticoagulant t herapy. An INR of 2.0-3.0 is suggested for d eep vein thrombosis/pulm onary embolism. [place] MethodistCOVID-19 qualitative [id number] 19:10:41 Test Item Value Reference Range Interpretation Comments Interpretation (test Negative results do code = 6553370) not preclude 2019-nCoV infection and should not be used as the sole basis for treatment or other patient management decisions. Negative results must be combined with clinical observations, patient history, and epidemiological information. COVID-19 qualitative Not-Detected Not-Detected PCR result (test code = 33064-4) COVID-19 qualitative See link below for C ase Number: PCR (test code = PDF Lab Report [id number]) [place] MethodistHepatitis C zbjkqlal9567-62-96 14:28:45 Test Item Value Reference Range Interpretation Comments Hepatitis C Ab (test code = Non-reactive Non-reactive 70423-1) [place] MethodistHIV Ag/Ab ntwyqhymbnr4860-98-32 14:28:45 Test Item Value Reference Range Interpretation Comments HIV Ag/Ab combination (test code Non-reactive Non-reactive = 5299) [place] MethodistUrinalysis screen and microscopy, with reflex to culture 2020-05-25 14:25:34 Test Item Value Reference Range Interpretation Comments Specimen site (test Clean catch code = 9386097) Color, UA (test code = Straw 5778-6) Appearance, UA (test Clear code = 5767-9) Specific gravity, UA 1.008 1.001-1.035 (test code = 5811-5) pH, UA (test code = 6.0 5.0-8.5 5803-2) Protein, UA (test code Negative Negative = 42710-5) Glucose, UA (test code Negative Negative = 72320-3) Ketones, UA (test code Negative Negative = 2514-8) Bilirubin, UA (test Negative Negative code = 5770-3) Blood, UA (test code = Large Negative A 5794-3) Nitrite, UA (test code Negative Negative = 5802-4) Urobilinogen, UA (test <2.0 <2.0 code = 94664-1) Leukocyte esterase, UA Negative Negative (test code = 5799-2) Epithelial cells, UA <1 See_Comment [Autom ated (test code = 5787-7) message ] The system which generated this result transmitted reference range : /HPF. The refer ence range was not u sed to interpret th is result as normal/abnormal . WBC, UA (test code = 3 See_Comment [Autom ated 5821-4) message] The sy stem which generated this result transmitted reference range : 0 - 4 /HPF. The reference range was not used to interpret this result as normal/abnormal . RBC, UA (test code = 41 See_Comment H [Autom ated 97861-0) message] The sy stem which generated this result transmitted reference range : 0 - 5 /HPF. The reference range was not used to interpret this result as normal/abnormal . Bacteria, UA (test code Few None seen = 27371-0) Yeast, UA (test code = None seen 60760-3) Yeast with None seen pseudohyphae, UA (test code = 67163-5) Lab Interpretation Abnormal (test code = 51894-0) [place] MethodistUrine czqulkz0820-63-06 14:17:51 Test Item Value Reference Range Interpretation Comments Urine culture (test SEE COMMENT Bacteriu wally screen code = 0127315) negative. [place] MethodistType and djjygk7543-52-39 13:40:00 Test Item Value Reference Range Interpretation Comments ABO grouping (test code = 883-9) A Rh type (test code = 68646-0) POS Antibody screen (gel) (test code = NEG 890-4) [place] MethodistAerobic joboiit0107-04-31 03:06:29 Test Item Value Reference Range Interpretation Comments Aerobic culture No growth Specimen isolate (test after 3 days. InformationSp ecimen code = 498) Source: [facility] Site: Lung nodule lef t lower lobe [place] MethodistCytology (non-gynecological) ravjfpe8791-43-59 14:02:33 Test Item Value Reference Range Interpretation Comments Case number (test code = [id number]) Cytology See link below for (non-gynecological) PDF Lab Report report (test code = 1178) Result status (test code This is Final Report = [id number]) for [id number] [place] MethodistFungus jzwef7614-73-65 13:01:19 Test Item Value Reference Range Interpretation Comments Fungus smear No fungi Specimen (test code = observed. InformationSpec imen Source: 1443) MassSpecimen Si te: Lung nodule left low er lobe [place] MethodistGram yoefq4958-32-99 11:30:50Gram stain isolateRare WBC'sNo organisms seen Comment: Specimen InformationSpecimen Source: MassSpecimen Site: Lung nodule left lower lobe [facility] MethodistAFB stain 2020-05-06 11:01:07 Test Item Value Reference Range Interpretation Comments AFB stain No acid fast Specimen (test code = bacilli (AFB) [facility] 676-7) seen. Source: [facility] Site: Lung nodule lef t lower lobe [place] MethodistCT Needle Biopsy No Xlloecei8834-49-49 14:16:53 Interface, Radiology Results Incoming - 05/05/2020 2:19 PM CSTPERFORMING RADIOLOGIST:Geovanna Riggins MDASSISTANTS:None. ANESTHESIA TYPE:Moderate sedation was administered by the procedure nurseand monitored intraservice nczx-iw-ihuv by the procedure physician for 25 minutes. Lidocaine 1% was used for local anesthetic. PRE PROCEDURE DIAGNOSIS: Nodule left lower lobePOST PROCEDURE DIAGNOSIS: Status post CT-guided core needle biopsy nodule left lower lobePROCEDURE: Limited preprocedural noncontrast CT of the chest.CT-guided core needle biopsy nodule left lower lobe.Limited postprocedural noncontrast CT the chest.TECHNIQUE: Written informed consent was obtained prior to the procedure. The patient was placed in a prone position on the CT gantry. A limited noncontrast CT of the chest was performed. A suitable approach for biopsy was chosen. The left back was sterilely prepped and draped in the usual routine manner. Using real-time CT guidance, the skin and soft tissues overlying the biopsy site were anesthetized via a 25-gauge needle . A dermatotomy was made. The needle was removed.Then, using intermittent CT guidance, a(n) 17 gauge 10 cm long trocar and stylet were advanced to the levelof the lesion. Then, the stylet was removed and a 17 gauge 16 cm long Bard biopsy device was advanced via the trocar into the lesion. A 2 cm biopsy tray was advanced. A biopsy was obtained. The biopsy device was removed. The stylette was replaced. The sample was submitted for pathologic review. This process was repeated for a total of 3 samples.Initial pathologic review requested an additional core for pathology as well as an additional core for culture.Consequently, the above process was repeated for 2 additional cores. Subsequently, the trocar was removed while instilling approximately 10 cc of the patient's own blood as a blood patch.Limited postprocedure CT of the chest was performed. It demonstrated post biopsy changes within the left lower lobe with trace overlying pneumothorax. COMPLICATIONS: None. SPECIMENS REMOVED: As detailed above. ESTIMATED BLOOD LOSS:Less than 2 mL. BLOOD PRODUCTS ADMINISTERED: None. CONTRAST/IMPLANTS:As described in the above report. IMPRESSION:Successful CT guided biopsy nodule left lower lobe with trace overlying pneumothorax.PLAN:-Chest radiograph immediatelypost procedure.-Chest radiograph 3 hours postprocedure.-If pneumothorax remains stable, patient willbe allowed to return home.[id number] [place] [facility] 1 [id number] 13:32:53Hm Interface, Radiology Results Incoming - 05/05/2020 1:35 PM CSTEXAMINATION: XR CHEST 1 VWCLINICAL HISTORY: post left lung biopsyCOMPARISON: To a previous examination from 1033 hoursIMPRESSION:Thepatient is status post left lung biopsy on the previously noted nodule in the left lower lobe.There is no evidence of pneumothorax or pleural effusion. Aside from the previously noted 2 cm nodule in the left lower lobe, the lungs are clear.The heart is not enlarged.1D2RAD_PS05[place] [facility] Manual [id number] 06:51:45 Test Item Value Reference Range Interpretation Comments Manual differential (test code = PERFORMED 16829-2) Neutrophils (test code = 73.0 % 39-69 H 77254-1) Lymphocytes (test code = 25.0 % 25-45 80443-3) Monocytes (test code = 21111-5) 2.0 % 0-10 Eosinophils (test code = 0.0 % 0-5 18907-1) Basophils (test code = 66106-7) 0.0 % 0-1 Metamyelocytes (test code = 0 % 740-1) Promyelocytes (test code = 0 % 783-1) Platelet slide review (test code Lela adequate = 14899-7) Anisocytosis (test code = 702-1) Moderate Polychromasia (test code = Moderate 39991-2) Tear drop cells (test code = Occasional 7791-7) Ovalocytes (test code = 774-0) Moderate Enlarged platelets (test code = Moderate A 51854-6) Lab Interpretation (test code = Abnormal 74259-1) Guicho [id number] 16:57:49Flavio Harrington CRNA 04/19/2020 4:58 PMAirwayPerformed by: Flavio Harrington CRNAAuthorized by: Yusef Mosher MD Location: ORUrgency: ElectiveDifficult Airway: No Anesthesiologist: Yusef Mosher MDResident/ROBOTIC TECHNICIAN/AA: Flavio Harrington CRNAPerformed by: resident/ROBOTIC TECHNICIAN/AAPreoxygenated with 100% O2: Yes Mask Ventilation: Easy maskFinal Airway Type: Endotracheal airwayFinal Endotracheal Airway: ETTCuffed: Yes Technique Used: Direct laryngoscopyDevices/Methods Used in Placement: Intubating styletInsertion Site: OralBlade Type: M illerLaryngoscope Blade/Videolaryngoscope Blade Size: 2ETT Size (mm): 7.0Cuff at minimum occlusionpressure: Yes Measured from: TeethETT to Teeth (cm): 21Placement Verified by: CO2 detection, direct visualization and equal breath sounds Laryngoscopic view: Grade I - full view of glottisRapid Sequence Induction (RSI): No Modified RSI: No Number of Attempts at Approach: 1[facility]PET/CT Skull Base To Mid [id number] 16:47:29Hm Interface, Radiology Results 04/15/2020 4:50 PM CSTEXAMINATION: PET CT SKULL BASE TOMID THIGHCLINICAL HISTORY: C67.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 1 hour later, PET/CT scanning from the orbits to the mid thighs was performed. CT scanning was nondiagnostic and used for attenuation correction purposes and to aid in localization of any abnormal findings on the PET images. Automated dose exposure control was utilized. Blood glucose = 88.FINDINGS:Head and NeckThere is no suspicious lymph node uptake and no evidence of malignancy in the brain.ChestMild uptake in the left hilum falls within the range of normal variation (SUV = 2.6); for comparison, physiological uptake in the right hilum has an SUV of 2.4. A 2.0 cm nodule with smooth margins in the left lower lobe may contain fat and demonstrates very mild uptake, unchanged in size (SUV = 2.0, previous SUV was 3.7). Average Hounsfield units = 8; minimum Hounsfield units = -110. However, macroscopic fat is not clearly visualized. No suspicious uptake in the: samuel, mediastinum, axillae.AbdomenUptake is normal in the: liver, spleen, adrenal glands, pancreas, stomach. The left kidney is severely hydronephrotic and nonfunctioning. This is also seen to be nonfunctioning on images from an outside nuclear renal scan on 02/27/2020, although the region of interest for the left kidney was drawn around the spleen on that study, leading to mild, artifactual overestimation of the left renal function. There is no suspicious retroperitoneal or mesenteric lymph node uptake.PelvisThere is no suspicious pelvic or inguinal lymph node uptake. Ill-defined soft tissue extends posteriorly from the mid bladder, slanting to the left, becoming contiguous with the distal left ureter. Marked uptake in this region (SUV = 8.6) can represent urinary activity only if it is moving in a retrograde direction, as the left kidney is nonfunctioning. Correlation with a diagnostic quality CT would be helpful. Please note that activity can artifactually appear to extend from the bladder posteriorly due to high levels of physiological urinary activity in the bladder, although this is usually directly posterior to the bladder, not slightly to the left. The bladder itself cannot be assessed due to high levels of physiological urinary activity.Osseous StructuresThere is no suspicious osseous uptake. IMPRESSION:1.Left lower lobe pulmonary nodule with some CT features suggestive of a hamartoma, demonstrating mild tracer uptake. The degree of uptake on this scan in the usual range of hamartoma, but uptake was higher visually and by SUV on the recent outside examination. A diagnostic quality chest CT scan is recommended; it may be possible to make the diagnosis of hamartoma. Otherwise, primary or metastatic malignancy is not excluded.2. Ill- defined soft tissue with marked uptake extending posteriorly and to the left from the bladder most likely represents a chronically dilated distal ureter with a small amount of urinary reflux. 3.Nonfunctioning left kidney. The left kidney is also nonfunctioning on the images of a recent outside nuclear renal scan, discussed above.[facility]-[id number] MethodistPET/CT Whole Body External Study 2020-04-15 12:21:08This exam was not acquired at a [facility] facility and has not been interpreted by a [facility] Provider. The exam was imported into our imaging system.[facility] External [id number] 12:19:59This exam was not acquired at a [facility] facility and has not been interpreted by a [facility] Provider. The exam was imported into our imaging system.[facility] Pre/Post [id number] 15:27:37 Test Item Value Reference Range Interpretation Comments Ventricular rate (test 65 code = 253) Atrial rate (test code = 65 255) ND interval (test code = 172 266) QRSD interval (test code 86 = 260) QT interval (test code = 382 264) QTC interval (test code = 397 265) P axis 1 (test code = 35 267) QRS axis 1 (test code = 57 268) T wave axis (test code = 27 270) EKG impression (test code Normal sinus = 273) rhythm-Electronicall y Signed By Christopher Torres MD ([id number]) on 04/14/2020 3:27:30 PM [place] [facility] Chest 2 [id number] 15:00:37Hm Interface, Radiology Results Incoming - 04/14/2020 3:03 PM CSTEXAMINATION: XR CHEST 2 VWCLINICAL HISTORY: Z01.811 Encounter for preprocedural respiratory examination, pre opCOMPARISON:None .IMPRESSION:1.Heart size is normal.2.Left lower lobe pulmonary nodule measures [address] chest findings is recommended.3.Left basilar atelectasis.4.No pneumothorax.5.Osseous structures are slightly demineralized.[id number]_PS01[place] [facility] medical centerHemoglobin [id number] 14:47:23 Test Item Value Reference Range Interpretation Comments Hemoglobin A1C (test 5.9 % 4-5.6 H HbA1c c utoffs for code = 92806-7) diagnosing diabetes:4.0% - 5.6% = normal5.7% - 6.4% = increased risk for diabetes (prediabetes)9> =6.5% = qwifgkyo6Uaeu s for glycemic contro l (ADA 2016)< 7.0% Ta rget for non adults with danae betes. More or less stringent targe ts may be appropriate for individual clark ents. <7.5% Target for Children and adolescents wit h type 1 diabetes. Lab Interpretation (test Abnormal code = 16170-5) [place] [facility] [id number] 14:34:41 Test Item Value Reference Range Interpretation Comments WBC (test code = 4.92 See_Comment [Automated message] 46527-3) The system [employer] generated this result transmitted ref erence range: 4.50 - 1 1.00 k/uL. The refer ence range was not u sed to interpret this result as normal/abnor mal. RBC (test code = 4.91 m/uL 4.2-5.5 49578-6) HGB (test code = 14.2 g/dL 12-16 718-7) HCT (test code = 44.6 % 37-47 4544-3) MCV (test code = 90.8 fL 82-100 787-2) MCH (test code = 28.9 pg 27-34 785-6) MCHC (test code = 31.8 g/dL 31-37 786-4) RDW - SD (test code = 47.4 fL 37-55 96937-1) MPV (test code = 11.4 fL 8.8-13.2 40267-1) Platelet count (test 239 See_Comment [Autom ated message] code = 30728-6) The system [employer] generated this result transmitted ref erence range: 150 - 40 0 k/uL. The reference r karey was not used to int erpret this result as normal/abnormal . Nucleated RBC (test 0.00 See_Comment [Automa ger message] code = 27289-2) The system [employer] generated this result transmitted ref erence range: /100 WBC . The reference range was not used to interpr et this result as normal/abnormal . Guicho Barrios
[2020-06-16 11:46] LABS: Absolute Lymphocytes (CBC) 0.9 K/uL (0.7-4.9); Basophils % 0.8 % (0-1.3); Hematocrit 35.1 % (36.0-45.0); Lymphocytes % 20.3 % (15.3-44.8); RBC Red Blood Cell Count 3.91 M/uL (3.86-4.86)
--- NOTE | 2020-06-16 11:46 | RAD REPORT ---
EXAM DESCRIPTION: CT - Thorax Wo Con - 06/16/2020 11:20 am CLINICAL HISTORY: Chest pain COMPARISON: none TECHNIQUE: Computed axial tomography of the chest was obtained. Contrast was not requested. All CT scans are performed using dose optimization technique as appropriate and may include automated exposure control or mA/KV adjustment according to patient size. FINDINGS: The evaluation of mediastinum, samuel and vessels is limited secondary to lack of IV contras t administration. A 22 millimeter noncalcified nodule left lower lobe. The right lung is clear. No mediastinal or hilar lymphadenopathy is seen. A pleural effusion is not present. No pericardial effusion A PICC line has its tip in the distal superior vena cava. Air is not visualized within the heart, pulmonary arteries/veins or great vessels. A 27 millimeter low-density lesion dome of the liver IMPRESSION: 22 millimeter left lower lobe nodule may represent a metastasis, bronchogenic carcinoma or granuloma. This should be compared to prior imaging 27 millimeter low-density lesion dome of the liver may represent metastasis. This also should be comp ared to prior imaging
[2020-06-16 11:59] LABS: Potassium 4.3 mmol/L (3.5-5.1)
--- NOTE | 2020-06-16 12:57 | EDPHYS ---
Physician Documentation [facility] Name: Ada Archibald Age: 60 yrs Sex: Female : 1960 Arrival Date: 06/16/2020 Time: 11:01 Bed 26 Private MD: ED Physician Ronald Perez HPI: 06/16 12:51 This 60 yrs old Female presents to ER via EMS with complaints of PICC line rn problem. 12:51 Reports giving herself fluid infusion through PICC line, noticed may not have taken all rn the air out of the line prior to infusion, called her doctor, told her to come her for evaluation. Feels fine. Just had radical cystectomy and nephrectomy.. Onset: The symptoms/episode began/occurred just prior to arrival. Severity of symptoms: At their worst the symptoms were very mild in the emergency department the symptoms are unchanged. The patient has not experienced similar symptoms in the past. The patient has been recently seen by a physician:. Historical: - Allergies: 11:48 Adhesives; iw 11:48 Benadryl; iw 11:48 BACITRACIN; iw 11:48 Clindamycin; iw 11:48 Erythromycin; iw 11:48 Gentamicin; iw 11:48 Ibuprofen; iw 11:48 LANOLIN; iw 11:48 Latex, Natural Rubber; iw 11:48 Lasix; iw 11:48 Mitomycin; iw 11:48 Neomycin Sulfate; iw 11:48 Neosporin ([id number]-izgrq); iw 11:48 Percodan; iw 11:48 Polymyxin B Sulfate; iw 11:48 Pyridium; iw 11:48 Tetracyclines; iw 11:48 Ultram; iw 11:48 Vicodin; iw 11:48 SSRI; iw - Home Meds: 12:10 Zofran Oral [Active]; iw - PMHx: 12:10 bladder cancer; iw - PSHx: 12:10 radical cystectomy and nephrectomy; iw - Immunization history:: Adult Immunizations unknown. - Family history:: not pertinent. - Social history:: Smoking status: unknown. - Hospitalizations: : No recent hospitalization is reported. ROS: 12:51 Constitutional: Negative for fever, chills, and weight loss, Eyes: Negative for injury, rn pain, redness, and discharge, Neck: Negative for injury, pain, and swelling, Cardiovascular: Negative for chest pain, palpitations, and edema, Respiratory: Negative for shortness of breath, cough, wheezing, and pleuritic chest pain, Abdomen/GI: Negative for abdominal pain, nausea, vomiting, diarrhea, and constipation, Back: Negative for injury and pain, MS/Extremity: Negative for injury and deformity, Skin: Negative for injury, rash, and discoloration, Neuro: Negative for weakness, numbness, tingling, and seizure. Exam: 12:51 Constitutional: This is a well developed, well nourished patient who is awake, alert, rn and in no acute distress. Head/Face: Normocephalic, atraumatic. Cardiovascular: Regular rate and rhythm. No pulse deficits. Respiratory: Speaking full sentences. No increased work of breathing, no retractions or nasal flaring. Abdomen/GI: soft, non-tender Skin: Warm, dry MS/ Extremity: Pulses equal, no cyanosis. Neuro: Awake and alert, GCS 15, oriented to person, place, time, and situation. Cranial nerves II-XII grossly intact. Motor strength 5/5 in all extremities. Sensory grossly intact. 12:51 ECG was reviewed by the Attending Physician. rn Vital Signs: 11:11 BP 94 / 61; Pulse 76; Resp 18 S; Temp 97.6; Pulse Ox 98% on R/A; iw 13:27 BP 110 / 69; Pulse 97; Resp 16; Pulse Ox 97% on R/A; zb MDM: 11:01 Patient medically screened. rn 12:51 Differential Diagnosis air embolism. Data reviewed: vital signs, nurses notes, lab test rn result(s), EKG, radiologic studies, CT scan, and as a result, I will discharge patient. Counseling: I had a detailed discussion with the patient and/or guardian regarding: the historical points, exam findings, and any diagnostic results supporting the discharge/admit diagnosis, lab results, radiology results, the need for outpatient follow up, to return to the emergency department if symptoms worsen or persist or if there are any questions or concerns that arise at home. Response to treatment: the patient's condition has returned to base line, the patient is now symptom free, and as a result, I will discharge patient. Special discussion: I discussed with the patient/guardian in detail that at this point there is no indication for admission to the hospital. It is understood, however, that if the symptoms persist or worsen the patient needs to return immediately for re-evaluation. ED course: CT chest without acute signs of air embolism in great vessels or heart, normal neuro exam, normal ECG, will dc home. Known left lung nodule, notified her of liver lesion as well, will take results to surgeon appt tomorrow. . 06/16 11:03 Order name: CBC with Diff rn 06/16 11:03 Order name: Basic Metabolic Panel; Complete Time: 12:10 rn 06/16 11:02 Order name: EKG; Complete Time: 11:03 rn 06/16 11:02 Order name: EKG - Nurse/Tech; Complete Time: 11:14 rn 06/16 11:02 Order name: CT Chest Wo Con; Complete Time: 12:10 rn 06/16 11:04 Order name: CBC with Automated Diff; Complete Time: 12:10 EDNY 06/16 11:03 Order name: IV Start; Complete Time: 11:52 rn EC:51 Rate is 68 beats/min. Rhythm is regular. QRS Ferney is Normal. UT interval is normal. QRS rn interval is normal. QT interval is normal. No Q waves. T waves are Normal. No ST changes noted. Clinical impression: Normal ECG. Interpreted by me. Reviewed by me. Administered Medications: No medications were administered Disposition: 06/16/20 12:56 Discharged to Home. Impression: Person with feared health complaint in whom no diagnosis is made. - Condition is Stable. - Discharge Instructions: PICC Home Guide. - Medication Reconciliation Form, Thank You Letter, Antibiotic Education, Prescription Opioid Use form. - Follow up: Private Physician; When: As needed; Reason: Recheck today's complaints, Re-evaluation by your physician. - Problem is new. - Symptoms have improved. Signatures: Dispatcher [employer] EDCyn Meng RN RN iw Nieto, Roman, MD MD rn Brown, Zipporah, RN RN zb Corrections: (The following items were deleted from the chart) 13:42 12:56 06/16/2020 12:56 Discharged to Home. Impression: Person with feared health zb complaint in whom no diagnosis is made. Condition is Stable. Forms are Medication Reconciliation Form, Thank You Letter, Antibiotic Education, Prescription Opioid Use. Follow up: Private Physician; When: As needed; Reason: Recheck today's complaints, Re-evaluation by your physician. Problem is new. Symptoms have improved. rn
--- NOTE | 2020-06-16 12:57 | ER ---
Nurse's Notes [facility] Name: dAa Archibald Age: 60 yrs Sex: Female : 1960 Arrival Date: 06/16/2020 Time: 11:01 Bed 26 Private MD: Diagnosis: Person with feared health complaint in whom no diagnosis is made Presentation: 06/16 11:11 Chief complaint: Patient states: was giving herself and infusion of NS through her PICC iw line, forgot to prime the tubing before she opened up the infusion, pt believes she may have gotten an air embolism, states she was feeling some tightness in her chest and was coughing but that has improved since EMS arrived , pt denies LOC, started her infusion around 0915 or 929. Coronavirus screen: At this time, the client does not indicate any symptoms associated with coronavirus-19. Ebola Screen: Patient negative for fever greater than or equal to 101.5 degrees Fahrenheit, and additional compatible Ebola Virus Disease symptoms Patient denies exposure to infectious person. Patient denies travel to an Ebola-affected area in the 21 days before illness onset. No symptoms or risks identified at this time. Initial Sepsis Screen: Does the patient meet any 2 criteria? No. Patient's initial sepsis screen is negative. Does the patient have a suspected source of infection? No. Patient's initial sepsis screen is negative. Risk Assessment: Do you want to hurt yourself or someone else? Patient reports no desire to harm self or others. Onset of symptoms was June 16, 2020. 11:11 Method Of Arrival: EMS: [facility] iw 11:11 Acuity: LOYDA 3 iw Historical: - Allergies: 11:48 Adhesives; iw 11:48 Benadryl; iw 11:48 BACITRACIN; iw 11:48 Clindamycin; iw 11:48 Erythromycin; iw 11:48 Gentamicin; iw 11:48 Ibuprofen; iw 11:48 LANOLIN; iw 11:48 Latex, Natural Rubber; iw 11:48 Lasix; iw 11:48 Mitomycin; iw 11:48 Neomycin Sulfate; iw 11:48 Neosporin (fph-cfb-nkvrv); iw 11:48 Percodan; iw 11:48 Polymyxin B Sulfate; iw 11:48 Pyridium; iw 11:48 Tetracyclines; iw 11:48 Ultram; iw 11:48 Vicodin; iw 11:48 SSRI; iw - Home Meds: 12:10 Zofran Oral [Active]; iw - PMHx: 12:10 bladder cancer; iw - PSHx: 12:10 radical cystectomy and nephrectomy; iw - Immunization history:: Adult Immunizations unknown. - Family history:: not pertinent. - Social history:: Smoking status: unknown. - Hospitalizations: : No recent hospitalization is reported. Screenin:50 Abuse screen: Denies threats or abuse. Denies injuries from another. Nutritional iw screening: No deficits noted. Tuberculosis screening: No symptoms or risk factors identified. Fall Risk None identified. Assessment: 11:15 General: Appears in no apparent distress. Pain: Complains of pain in chest. Neuro: iw Level of Consciousness is awake, alert, obeys commands, Oriented to person, place, time, situation, Moves all extremities. Full function. Cardiovascular: Patient's skin is warm and dry. Respiratory: Respiratory effort is even, unlabored, Respiratory pattern is regular. Derm: Skin is intact, is fragile. Musculoskeletal: Range of motion: intact in all extremities. 12:18 Reassessment: Patient appears in no apparent distress at this time. Patient and/or iw family updated on plan of care and expected duration. Pain level reassessed. Patient is alert, oriented x 3, equal unlabored respirations, skin warm/dry/pink. 13:18 General: Appears in no apparent distress. comfortable, Behavior is calm, cooperative, zb appropriate for age. Pain: Denies pain. Neuro: Level of Consciousness is awake, alert, obeys commands, Oriented to person, place, time, situation, Braider Setter are equal bilaterally Moves all extremities. Full function Gait is steady, Speech is normal. Cardiovascular: Patient's skin is warm and dry. Respiratory: Airway is patent Respiratory effort is even, unlabored, Respiratory pattern is regular, symmetrical, Breath sounds are clear bilaterally. GI: Abdomen is round midline scars and ex-lap scars present. patient also has urostomy or right lower abdominal area. : Urine is clear, urostomy. EENT: No signs and/or symptoms were reported regarding the EENT system. Derm: Skin is intact, is fragile, Skin is dry, Skin is normal, Skin temperature is warm. Musculoskeletal: Range of motion: intact in all extremities. Vital Signs: 11:11 BP 94 / 61; Pulse 76; Resp 18 S; Temp 97.6; Pulse Ox 98% on R/A; iw 13:27 BP 110 / 69; Pulse 97; Resp 16; Pulse Ox 97% on R/A; zb ED Course: 11:01 Patient arrived in ED. rn 11:01 Ronald Perez MD is Attending Physician. rn 11:10 Cyn Brooks RN is Primary Nurse. iw 11:14 Triage completed. iw 11:14 EKG done, by ED staff, reviewed by Ronald Perez MD. em1 11:21 CT Chest Wo Con In Process Unspecified. EDMS 11:49 Arm band placed on. iw 13:41 No provider procedures requiring assistance completed. Patient did not have IV access zb during this emergency room visit. patient came with her own PICC line. no additional IV started. 13:41 Patient has correct armband on for positive identification. Pulse ox on. NIBP on. zb Administered Medications: No medications were administered Outcome: 12:56 Discharge ordered by . rn 13:42 Discharged to home ambulatory. zb 13:42 Condition: stable 13:42 Discharge instructions given to patient, Instructed on discharge instructions, follow up and referral plans. Demonstrated understanding of instructions, follow-up care. 13:42 Patient left the ED. zb Signatures: Dispatcher [employer] Cyn Rhodes, Ronald Wren RN, MD MD rn Martinez, Eric em1 Jenny Andrews RN RN zb
[2020-06-16 14:18] VITALS: TEMP 97.6
[2020-06-16 14:19] VITALS: BP 110/69; O2SAT 97
--- NOTE | 2020-06-17 05:38 | EKG ---
Test Date: 2020-06-16 Test Time: 11:08:29 Airworthiness Safety Inspector: ORIANA MEASUREMENT RESULTS: Intervals: Rate: 68 AK: 152 QRSD: 84 QT: 352 QTc: 374 [place]: P: 10 AK: 152 QRS: 71 T: 33 INTERPRETIVE STATEMENTS: Normal sinus rhythm Normal ECG No previous ECG available for comparison Electronically Signed On 06-17-20 05:35:38 CHIEF ACCOUNTING OFFICER by Ronal Navarrete
== END 2020-06-16 13:42 | disposition home or self-care (01) ==
LOC: ER 10:56
DX: Z45.2 Encounter for adjustment and management of vascular access device (principal); C67.9 Malignant neoplasm of bladder, unspecified
CPT/HCPCS: 36415; 71250; 80048; 85025; 93005; 99284